=== PATIENT | male | born 1990 | race Caucasian/White ===

== ENCOUNTER 2016-10-01 09:11 | Emergency (ER) | payer OTHER ==
--- NOTE | 2016-10-07 15:59 | ER ---
ADMIT: 10/01/2016 RM/LOC: ER [facility] MR#: [id number] [address] [id number] HUEY MCCOY [address] [place] [id number] Emergency Room Report SEX: M AGE: 26 : 1990 DATE: 10/01/2016 ADDENDUM: This patient comes to the ER by ambulance from the half-way. He had a first-time seizure while in half-way, in the nurse's exam room. The patient states that he takes benzodiazepines regularly, prescribed by his physician and he had not have them in four days. According to bystanders, he had a seizure, full tonic colonic. He did not have any lacerations or abrasions to his tongue or have urinary incontinence. Currently, he states he just has general malaise. Denies any pain. CBC, BMP, and urinalysis were negative. CT scan of the head was negative. DIAGNOSIS: 1. Seizure. 2. Possible benzodiazepine withdrawal. I did consult with Dr. Williamson concerning of this treatment patient. He was given 2 mg of Ativan IV. We also gave him a liter bolus. He is to increase fluids. He was discharged back to police custody, and I recommended they put him back on his benzodiazepines that were prescribed by his physician. Please see my T-sheet. DARWIN Berry / Gordon Williamson MD / charlenel JOB #: [id number] CC: Gordon Williamson MD, Attending Physician [facility], Family Physician
== END 2016-10-01 12:30 | disposition home or self-care (01) ==
LOC: ER 09:11
DX: R56.9 Unspecified convulsions (principal); I10 Essential (primary) hypertension; F32.9 Major depressive disorder, single episode, unspecified; F41.9 Anxiety disorder, unspecified; Z88.8 Allergy status to other drugs, medicaments and biological substances